=== PATIENT | female | born 1995 | race Caucasian/White ===

== ENCOUNTER 2021-11-03 08:27 | Emergency (ER) | payer SELFPAY ==
[2021-11-03 08:43] VITALS: BP 113/70; PULSE 98; RESP 16; TEMP 36.6; O2SAT 99
[2021-11-03 09:28] LABS: Appearance Urine Cloudy (Clear); Bilirubin Urine 1+ (Negative); Blood Urine 2+ (Negative); Color Urine Yellow (Yellow); Glucose Urine UA Negative (Negative); Ketones Urine Trace mg/dL (Negative); Leukocyte Esterase Ur 1+ LEU/UL (Negative); Nitrate Urine Negative (Negative); Protein Urine 1+ mg/dL (Negative); Specific Grav Ur 1.025 (1.001-1.035); Urobilinogen Urine 0.2 mg/dL (<2.0)
[2021-11-03 09:36] LABS: Bacteria Urine Trace /hpf; Mucus Urine Moderate /lpf; RBC Urine 51-75 /hpf (0-2); Squamous Epithelial Cell Urine Many /hpf (Few); WBC Urine >75 /hpf
[2021-11-03 09:38] VITALS: BP 123/83; PULSE 78; RESP 18; O2SAT 99
[2021-11-03 09:38] LABS: Add Urine Microscopic? YES
[2021-11-03 09:52] LABS: Basophils Absolute Auto 0.1 K/mm3 (0.0-0.1); Basophils Percent Auto 0.5 % (0.2-1.2); Eosinophils Absolute Auto 0.1 K/mm3 (0-0.3); Eosinophils Percent Auto 0.5 % (0-4.4); Hematocrit 43.7 % (37.0-47.0); Hemoglobin 14.5 g/dL (12.0-15.0); Immature Granulocyte Absolute 0.03 K/mm3 (0.00-0.031); Immature Granulocyte Percent A 0.3 % (0-0.5); Lymphocytes Absolute Auto 1.66 K/mm3 (0.9-3.2); Lymphocytes Percent Auto 16.2 % (18.3-44.2); Mean Corpuscular HGB Conc 33.2 g/dl (32-36); Mean Corpuscular Hemoglobin 29.8 pg (26-34); Mean Corpuscular Volume 89.9 fl (80-100); Mean Platelet Volume 8.6 fl (7.4-10.4); Monocytes Absolute Auto 1.2 K/mm3 (0.1-0.6); Monocytes Percent Auto 11.3 % (2.6-8.5); Neutrophils Absolute Auto 7.3 K/mm3 (1.3-6.7); Neutrophils Percent Auto 71.2 % (45.5-73.1); Platelet Count Result 252 k/mm3 (150-375); Red Blood Count 4.86 M/mm3 (4.2-5.4); Red Cell Distribution Width 12.8 % (11.5-14.5); White Blood Count 10.2 K/mm3 (4.5-10.0)
[2021-11-03 10:03] LABS: Alanine Aminotransferase 12 U/L (6-35); Albumin Level 4.8 g/dL (3.5-5.1); Alkaline Phosphatase 70 U/L (38-126); Anion Gap 8 mmol/L (8-16); Aspartate Amino Transferase 25 U/L (14-36); Bilirubin,Total 0.3 mg/dL (0.2-1.3); Blood Urea Nitrogen 12 mg/dL (7-17); Calcium 9.4 mg/dL (8.4-10.2); Carbon Dioxide 24 mmol/L (22-30); Chloride 102 mmol/L (98-107); Estimated Glomerular Filt Rate > 60; Glucose 97 mg/dL (65-110); Lipase 45 U/L (23-300); Potassium 5.5 mmol/L (3.4-5.0); Sodium 134 mmol/L (137-145)
[2021-11-03] MEDS: cefTRIAXone 1 GM VIAL 0.5 GM IM (10:38)
[2021-11-03] MEDS: LIDOCAINE HCL 1% LOCAL INJ 20 ML VIAL 2.1 ML XX (10:39)
--- NOTE | 2021-11-03 10:57 | ED.FEMALEGU ---
HPI - Female Genitourinary General Chief complaint: Urogenital-Female Stated complaint: upper abd pain Time Seen by Provider: 11/03/21 09:44 History of Present Illness HPI Narrative: Patient is a 25-year-old female who presents ER with vaginal discharge and genital lesions. Patient reports 1 week ago she was having sex with her significant other when she noticed that she is having discomfort in her vagina and they discontinued. She developed discharge in the last 2 days. She used xiop-nul-[id number] fluconazole vaginal cream without improvement. She also tried an oral probiotic. She was concerned she had a yeast infection however over the last day she has developed small blisters near her genitals. No history of HSV or other STD. She has has had the same sexual partner for the last 6 months and was not concern for STI until this time. She reports she is having burning urination that may be related to the lesions. No fevers or chills or sweats. No abdominal pain. Related Data Allergies Allergy/AdvReac Type Severity Reaction Status Date / Time No Known Allergies Allergy Verified 11/03/21 09:41 Review of Systems Review of Systems: All systems reviewed & are unremarkable except as noted in HPI and below Constitutional: Constitutional: Denies chills Comments: Afebrile Respiratory: Respiratory: Denies cough and Denies dyspnea Gastrointestinal: Gastrointestinal: Denies abdominal pain, Denies nausea and Denies vomiting Genitourinary: Genitourinary: Denies abnormal vaginal bleeding, Denies nocturia, Reports dysuria, Denies pelvic pain, Denies flank pain and Reports vaginal discharge Musculoskeletal: Musculoskeletal: Denies back pain and Denies muscle cramps PMFSH Past Medical History Medical History (Updated 11/03/21 @ 11:04 by Usman Terry MD) Healthy female adult Surgical History Surgical History (Updated 11/03/21 @ 10:58 by Usman Terry MD) No history of previous surgery Social History Social History (Updated 11/03/21 @ 10:58 by Usman Terry MD) Smoking status: Never smoker Exam Narrative: GENERAL: Well-appearing, well-nourished, and in no acute distress. HEAD: Normocephalic, atraumatic. EYES: PERRL and EOMI. CHEST: Clear to auscultation. No respiratory distress. HEART: Regular rate and rhythm. Normal peripheral pulses. ABDOMEN: Soft, nontender, nondistended. : External genitalia with lesions consistent with herpes over the mons and vulva bilaterally. Vesicles appear to be becoming ulcerations at this point. No cellulitis. No follicles. Patient with discomfort with speculum exam. Moderate discharge noted. Cervix closed and not bleeding. Mildly friable. EXTREMITIES: Normal range of motion. No edema. SKIN: Warm, dry, no rash. NEURO: Alert and oriented x3. PSYCH: Normal mood and affect. Course Course Emergency Course: Patient will be treated with Valtrex as well as Flagyl and doxycycline outpatient. Patient's trichomonal test was negative. Attempted to gather a sample for herpes simplex culture but it is unlikely there is enough fluid from the vesicle to work. Patient educated about diagnosis and treatment plan and verbalized understanding. Urinalysis contaminated and felt to be related to patient's vaginal discharge from herpetic infection. Vital Signs Vital signs: Vital Signs Temperature 98 F 11/03/21 08:43 Pulse Rate 98 11/03/21 08:43 Respiratory Rate 16 11/03/21 08:43 Blood Pressure 113/70 11/03/21 08:43 Pulse Oximetry 99 11/03/21 08:43 Temperature 98 F 11/03/21 08:43 Pulse Rate 78 11/03/21 09:38 Respiratory Rate 18 11/03/21 09:38 Blood Pressure 123/83 11/03/21 09:38 Pulse Oximetry 99 11/03/21 09:38 MDM - Female Genitourinary Lab Data Result diagrams: 11/03/21 09:45 11/03/21 09:45 Labs: Lab Results 11/03/21 11/03/21 11/03/21 Range/Units 09:19 09:45 09:45 WBC 10.2 H (4.5-10.0) K/mm3 RBC
[2021-11-03 11:36] VITALS: BP 122/66; PULSE 65; RESP 16; O2SAT 100
== END 2021-11-03 11:38 | disposition home or self-care (01) ==
PROVIDERS: Emergency Provider Emergency Medicine
DX: A60.00 Herpesviral infection of urogenital system, unspecified (principal)
CPT/HCPCS: 36415; 80053; 81001; 81025; 83690; 85025; 87070; 87086; 87255; 87491; 87591; 87808; 96372; 99284; J0696